=== PATIENT | female | born 2000 | race Hispanic/Latino ===

== ENCOUNTER 2023-04-06 07:35 | Emergency (ER) | payer MEDICAID ==
[~2023-04-06] VITALS: Ht 162.6 cm; Wt 94.3 kg
[2023-04-06 07:59] LABS: APPEARANCE,URINE CLEAR (CLEAR); BILIRUBIN,URINE NEGATIVE (NEGATIVE); COLOR,URINE LIGHT-YELLOW (YELLOW); GLUCOSE, URINE (UA) 50 mg/dL (NEGATIVE); KETONES,URINE NEGATIVE (NEGATIVE); LEUKOCYTE ESTERASE ,URINE NEGATIVE Leu/uL (NEGATIVE); NITRATE,URINE NEGATIVE (NEGATIVE); OCCULT BLOOD,URINE NEGATIVE (NEGATIVE); PROTEIN,URINE 20 mg/dL (NEGATIVE); UROBILINOGEN,URINE 0.2 mg/dL (0.2-1.0)
[2023-04-06 08:00] LABS: BASOPHILS % (AUTO) 0.2 % (0.0-5.0); EOSINOPHILS % (AUTO) 0.6 % (0.0-8.0); HEMATOCRIT 38.6 % (36-48); LYMPHOCYTES % (AUTO) 27.1 % (21.0-51.0); MEAN CORPUSCULAR HEMOGLOBIN 30.4 pg (27.0-33.0); MEAN CORPUSCULAR HGB CONC 34.5 g/dL (32.0-36.0); MEAN CORPUSCULAR VOLUME 88.1 fL (80-100); MONOCYTES % (AUTO) 8.8 % (3.0-13.0); PLATELET COUNT (AUTO) 289 K/uL (130-400); RED BLOOD CELL COUNT(AUTO) 4.38 MIL/uL (4.00-5.50); RED CELL DISTRIBUTION WIDTH 11.9 % (11.0-15.5); WHITE BLOOD COUNT (AUTO) 12.6 K/uL (4.8-10.8)
[2023-04-06 08:11] LABS: CREATININE 0.7 mg/dL (0.5-1.5); POTASSIUM 3.8 mmol/L (3.5-5.1)
[2023-04-06 08:14] LABS: MUCUS,URINE RARE LPF (None Seen); SQUAMOUS EPITHELIAL CELL,UR FEW /HPF (0-2)
[2023-04-06 08:38] LABS: ALBUMIN 3.5 g/dL (3.5-5.0); TOTAL PROTEIN, SERUM 7.4 g/dL (6.0-8.3)
[2023-04-06] MEDS ORDERED: ONDANSETRON 4MG INJ IVP ONE (09:00)
[2023-04-06] MEDS ORDERED: 0.9%NACL 1000ML 1,000 ML IV ONE (09:00)
[2023-04-06] MEDS ORDERED: DOXY1TAB3 PO (10:21)
[2023-04-06 10:43] VITALS: BP 112/56
[2023-04-06 11:37] LABS: RAPID PLASMA REAGIN NONREACTIVE (NONREACTIVE)
== END 2023-04-06 10:56 | disposition home or self-care (01) ==
LOC: EDH 07:35
DX: O26.891 Other specified pregnancy related conditions, first trimester (principal); O21.0 Mild hyperemesis gravidarum; Z3A.10 10 weeks gestation of pregnancy
CPT/HCPCS: 99285; 96374; 76801; 96361; 86592; 80053; 84702; 85025; 86850; 86900; 86901; 87283; 86701; 87390; 81001; 36415; 76817; J7030; J2405

== ENCOUNTER 2023-05-07 02:11 | Emergency (ER) | payer MEDICAID ==
[~2023-05-07] VITALS: Ht 162.6 cm; Wt 93.9 kg
[~2023-05-07 02:11] MED LIST: DOXY1TAB3 PO
[2023-05-07 02:40] VITALS: BP 124/67; PULSE 80; RESP 17; O2SAT 98
[2023-05-07 02:44] LABS: BASOPHILS # (AUTO) 0.03 K/uL (0.00-0.20); BASOPHILS % (AUTO) 0.3 % (0.0-5.0); EOSINOPHILS # (AUTO) 0.15 K/uL (0.00-0.70); EOSINOPHILS % (AUTO) 1.4 % (0.0-8.0); HEMATOCRIT 35.7 % (36-48); IMMATURE GRANULOCYTE ABSOLUTE 0.04 K/uL (0-1); LYMPHOCYTES # (AUTO) 3.5 K/uL (1.0-4.8); MEAN CORPUSCULAR HEMOGLOBIN 30.5 pg (27.0-33.0); MEAN CORPUSCULAR HGB CONC 34.7 g/dL (32.0-36.0); MEAN CORPUSCULAR VOLUME 87.9 fL (80-100); MONOCYTES # (AUTO) 1.1 K/uL (0.1-1.0); MONOCYTES % (AUTO) 10.2 % (3.0-13.0); NEUTROPHILS # (AUTO) 5.8 K/uL (1.8-7.7); NEUTROPHILS % (AUTO) 54.7 % (40.0-77.0); PLATELET COUNT (AUTO) 265 K/uL (130-400); RED BLOOD CELL COUNT(AUTO) 4.06 MIL/uL (4.00-5.50); RED CELL DISTRIBUTION WIDTH 11.5 % (11.0-15.5); WHITE BLOOD COUNT (AUTO) 10.7 K/uL (4.8-10.8)
[2023-05-07 03:05] LABS: CREATININE 0.6 mg/dL (0.5-1.5)
[2023-05-07 03:09] LABS: ALBUMIN 3.1 g/dL (3.5-5.0); BILIRUBIN,TOTAL 0.2 mg/dL (0.2-1.0); TOTAL PROTEIN, SERUM 6.4 g/dL (6.0-8.3)
== END 2023-05-07 03:19 | disposition home or self-care (01) ==
LOC: EDH 02:11
DX: F41.9 Anxiety disorder, unspecified (principal)
CPT/HCPCS: 36415; 80053; 84484; 85025; 93005

== ENCOUNTER 2023-11-05 13:36 | Observation (INO) | payer MEDICAID ==
[~2023-11-05] VITALS: Ht 162.6 cm; Wt 99.8 kg
[2023-11-05 13:55] VITALS: BP 116/72; PULSE 91; RESP 20
[2023-11-05 14:42] LABS: APPEARANCE,URINE CLOUDY (CLEAR); BILIRUBIN,URINE NEGATIVE (NEGATIVE); COLOR,URINE LIGHT-YELLOW (YELLOW); GLUCOSE, URINE (UA) NEGATIVE (NEGATIVE); KETONES,URINE NEGATIVE (NEGATIVE); LEUKOCYTE ESTERASE ,URINE 250 Leu/uL (NEGATIVE); NITRATE,URINE NEGATIVE (NEGATIVE); OCCULT BLOOD,URINE NEGATIVE (NEGATIVE); PROTEIN,URINE 10 mg/dL (NEGATIVE); UROBILINOGEN,URINE 0.2 mg/dL (0.2-1.0)
[2023-11-05 14:43] LABS: ADD UA MICROSCOPIC YES
[2023-11-05 14:49] LABS: BACTERIA,URINE FEW /HPF (None Seen); MUCUS,URINE RARE LPF (None Seen); RBC,URINE 0-1 /HPF (0-1); SQUAMOUS EPITHELIAL CELL,UR MOD /HPF (0-2)
[2023-11-08] MEDS ORDERED: IBUP-2077 PO (09:23)
[2023-11-08] MEDS ORDERED: DOCU-116 PO (09:24)
== END 2023-11-05 15:30 | disposition home or self-care (01) ==
LOC: EDH 13:36 → LDH 14:01
PROVIDERS: ADMIT Obstetrics & Gynecology; ATTEND Obstetrics & Gynecology
DX: O26.893 Other specified pregnancy related conditions, third trimester (principal); R10.9 Unspecified abdominal pain; O99.891 Other specified diseases and conditions complicating pregnancy; M54.50 Low back pain, unspecified; Z3A.36 36 weeks gestation of pregnancy
CPT/HCPCS: 87088; 81001; G0378

== ENCOUNTER 2024-03-18 16:01 | Emergency (ER) | payer MEDICAID ==
[~2024-03-18] VITALS: Ht 162.6 cm; Wt 97.5 kg
[~2024-03-18 16:01] MED LIST changes: +DOCU-116 PO; -DOXY1TAB3 PO; +IBUP-2077 PO
[2024-03-18 17:04] LABS: BASOPHILS # (AUTO) 0.03 K/uL (0.00-0.20); BASOPHILS % (AUTO) 0.2 % (0.0-5.0); EOSINOPHILS # (AUTO) 0.13 K/uL (0.00-0.70); EOSINOPHILS % (AUTO) 1.1 % (0.0-8.0); IMMATURE GRANULOCYTE ABSOLUTE 0.04 K/uL (0-1); LYMPHOCYTES # (AUTO) 2.8 K/uL (1.0-4.8); LYMPHOCYTES % (AUTO) 23.5 % (21.0-51.0); MEAN CORPUSCULAR HEMOGLOBIN 26.9 pg (27.0-33.0); MEAN CORPUSCULAR HGB CONC 32.4 g/dL (32.0-36.0); MONOCYTES % (AUTO) 8.5 % (3.0-13.0); NEUTROPHILS % (AUTO) 66.4 % (40.0-77.0); PLATELET COUNT (AUTO) 358 K/uL (130-400); RED BLOOD CELL COUNT(AUTO) 4.46 MIL/uL (4.00-5.50); RED CELL DISTRIBUTION WIDTH 13.9 % (11.0-15.5); WHITE BLOOD COUNT (AUTO) 12.1 K/uL (4.8-10.8)
[2024-03-18 17:33] LABS: CREATININE 0.6 mg/dL (0.5-1.0); POTASSIUM 3.9 mmol/L (3.5-5.1)
[2024-03-18 17:40] VITALS: BP 122/76; PULSE 92; RESP 16; O2SAT 99
[2024-03-18 18:42] LABS: APPEARANCE,URINE CLEAR (CLEAR); BILIRUBIN,URINE NEGATIVE (NEGATIVE); COLOR,URINE LIGHT-YELLOW (YELLOW); GLUCOSE, URINE (UA) NEGATIVE (NEGATIVE); KETONES,URINE 5 mg/dL (NEGATIVE); LEUKOCYTE ESTERASE ,URINE 25 Leu/uL (NEGATIVE); NITRATE,URINE NEGATIVE (NEGATIVE); OCCULT BLOOD,URINE MODERATE (NEGATIVE); PROTEIN,URINE 30 mg/dL (NEGATIVE); UROBILINOGEN,URINE 0.2 mg/dL (0.2-1.0)
[2024-03-18 18:43] LABS: ADD UA MICROSCOPIC YES
[2024-03-18 18:50] LABS: BACTERIA,URINE RARE /HPF (None Seen); MUCUS,URINE RARE LPF (None Seen); SQUAMOUS EPITHELIAL CELL,UR FEW /HPF (0-2); YEAST,URINE BUDDING RARE /HPF (None Seen)
== END 2024-03-18 20:11 | disposition home or self-care (01) ==
LOC: EDH 16:01
DX: N93.9 Abnormal uterine and vaginal bleeding, unspecified (principal); R10.2 Pelvic and perineal pain; Z32.01 Encounter for pregnancy test, result positive; Z79.899 Other long term (current) drug therapy; Z98.890 Other specified postprocedural states
CPT/HCPCS: 36415; 76801; 80048; 81001; 84702; 85025; 87088

== ENCOUNTER 2025-01-25 21:58 | Emergency (ER) | payer SELFPAY ==
[~2025-01-25] VITALS: Ht 162.6 cm; Wt 103.0 kg
[2025-01-25 23:19] LABS: APPEARANCE,URINE CLEAR (CLEAR); BILIRUBIN,URINE NEGATIVE (NEGATIVE); COLOR,URINE LIGHT-YELLOW (YELLOW); GLUCOSE, URINE (UA) NEGATIVE (NEGATIVE); KETONES,URINE NEGATIVE (NEGATIVE); LEUKOCYTE ESTERASE ,URINE 75 Leu/uL (NEGATIVE); NITRATE,URINE NEGATIVE (NEGATIVE); OCCULT BLOOD,URINE NEGATIVE (NEGATIVE); PH,URINE 5.5 (5.0-8.0); PROTEIN,URINE 10 mg/dL (NEGATIVE); UROBILINOGEN,URINE 0.2 mg/dL (0.2-1.0)
[2025-01-25 23:21] LABS: HCG,QUALITATIVE URINE NEGATIVE (NEGATIVE)
[2025-01-25 23:22] LABS: ADD UA MICROSCOPIC YES
[2025-01-25 23:27] LABS: AMPHET/METH SCREEN,URINE NEGATIVE (NEGATIVE); BARBITURATE SCREEN, URINE NEGATIVE (NEGATIVE); BENZODIAZEPINES SCREEN,URINE NEGATIVE (NEGATIVE); CANNABINOID SCREEN,URINE NEGATIVE (NEGATIVE); COCAINE SCREEN,URINE NEGATIVE (NEGATIVE); OPIATE SCREEN,URINE NEGATIVE (NEGATIVE); PHENCYCLIDINE SCREEN,URINE NEGATIVE (NEGATIVE)
[2025-01-25 23:33] LABS: BACTERIA,URINE FEW /HPF (None Seen); MUCUS,URINE FEW LPF (None Seen); SQUAMOUS EPITHELIAL CELL,UR RARE /HPF (0-2)
--- NOTE | 2025-01-25 23:34 | ERN ---
ED Note History of Present Illness Stated Complaint: C/O LOWER BACK PAIN W/ TINGLING TO LEGS Chief Complaint: Back Pain-No Injury Time Seen by MD: 22:01 Dictation: This is a 24-year-old female who presented to the emergency room complaining of back pain with radiation to the legs. No history of any trauma. No fever chills or rigors. No history of bladder or bowel incontinence. No weakness of the legs. No gait abnormalities she stated that she recently completed course of antibiotics a few weeks ago for a UTI. Apparently she was seen at [facility] Emergency room for the same back pain that started a few weeks ago. She has pain with movement and picking up her son. Temperature 98.2 pulse 94 respirations 20 blood pressure 131/101 pulse oximetry 98% on room air. BMI 39 Allergies: Coded Allergies: No Known Allergies (Unverified Allergy, Unknown, 04/06/23) Home Meds Active Scripts Ketorolac Tromethamine (Toradol) 10 Mg Tab, 10 MG PO QID for pain for 5 Days, #20 TAB 0 Refills Prov:MARYBETH BONNER MD 01/26/25 Cyclobenzaprine HCl (Cyclobenzaprine HCl) 5 Mg Tablet, 1 TAB PO TIDP PRN for muscle spasms for 5 Days, #15 TAB 0 Refills Prov:MARYBETH BONNER MD 01/26/25 Prednisone (Prednisone) 20 Mg Tablet, 1 TAB PO AD for 6 Days, #14 TAB 0 Refills TAKE 1 TAB BY MOUTH THREE TIMES PER DAY X3 DAYS, THEN TAKE 1 TAB BY MOUTH TWICE A DAY X2 DAYS, THEN TAKE 1 TAB BY MOUTH ONCE A DAY X1 DAY. Prov:MARYBETH BONNER MD 01/26/25 Reported Medications Docusate Sodium (Colace) 100 Mg Capsule, 100 MG PO BID, CAP 11/08/23 Ibuprofen (Ibuprofen 800 mg Tab) 800 Mg Tab, 800 MG PO Q8H PRN for PAIN, TAB 11/08/23 Past Medical History Past Medical History: No Pertinent History Surgical History: None Surgical History Other: LEFT EYE Family History: Negative Social History: Negative LMP: Dec 25, 2024 : 2 Para: 1 Aborts: 0 RN Note Reviewed/Agreed w/PFSH: Yes Review of System Dictation Constitutional: Negative for fever,chills, and weight loss Eyes: Negative for injury, pain,redness, and discharge ENT: Negative for injury,pain or swelling Cardiovascular: Negative for chest pain, palpitations, and edema Respiratory: Negative for shortness of breath, cough, and wheezing, Abdomen/GI: Negative for abdominal pain, nausea, vomiting, diarrhea, and constipation Back: Negative for injury and positive for pain : Negative for injury, bleeding and discharge MS/Extremity: Negative for injury and deformity Skin: Negative for rash, and discoloration Neuro: Negative for headache, weakness, numbness, tingling, and seizure Psych: Negative for suicide ideation, homicidal ideation, and hallucinations Initial Vital Sign VS Vital Signs Date Time Temp Pulse Resp B/P (MAP) Pulse Ox O2 Delivery O2 Flow Rate FiO2 01/25/25 22:01 98.2 94 20 131/101 98 Room Air Physical Exam Dictation General: awake, alert, NAD morbidly obese female Head/Face: Normocephalic, atraumatic Eyes: PERRL, EOMI, vision at baseline ENT: oral cavity clear, TMs clear, no signs of infection Neck: Trachea midline, supple, no nuchal rigidity Cardiovascular: RRR, normal S1/S2, No MRGs, no JVD Respiratory: CTAB, no respiratory distress, No rales or wheezes Abdomen: Soft, non-tender, non-distended, normal bowel sounds, no guarding or rebound. Skin: Warm, dry, normal turgor, no rash MS/Extremity: Pulses equal, no cyanosis, neurovascular intact, FROM no spine tenderness Neuro: COAx4, GCS 15, strength 5/5, CN 2-12 intact, normal cerebellar exam, normal gait, Psych: Normal behavior, mood, and affect normal Extremities-trace edema without any palpable cords, Homans sign is negative Results (Laboratory/Radiology) Laboratory/Radiology Laboratory Tests Test 01/25/25 23:07 Urine Color LIGHT-YELLOW (YELLOW) Urine Appearance CLEAR (CLEAR) Urine pH 5.5 (5.0-8.0) Urine Specific [place] 1.028 (1.001-1.031) Urine Protein 10 mg/dL (NEGATIVE) H Urine Glucose (UA) NEGATIVE mg/dL (NEGATIVE) Urine Ketones NEGATIVE mg/dL (NEGATIVE) Urine Occult Blood NEGATIVE (NEGATIVE) Urine Nitrate NEGATIVE (NEGATIVE) Urine Bilirubin NEGATIVE mg/dL (NEGATIVE) Urine Urobilinogen 0.2 mg/dL (0.2-1.0) Urine Leukocyte Esterase 75 [place]/uL (NEGATIVE) H Urine RBC 6-10 /HPF (0-1) H Urine WBC 2-5 /HPF (0-1) H Urine Squamous Epithelial Cells RARE /HPF (0-2) Urine Bacteria FEW /HPF (None Seen) Urine HCG, Qualitative NEGATIVE (NEGATIVE) Urine Opiates Screen NEGATIVE (NEGATIVE) Urine Barbiturates Screen NEGATIVE (NEGATIVE) Urine Phencyclidine Screen NEGATIVE (NEGATIVE) Urine Amphetamines Screen NEGATIVE (NEGATIVE) Urine Benzodiazepines Screen NEGATIVE (NEGATIVE) Urine Cocaine Screen NEGATIVE (NEGATIVE) Urine Marijuana (THC) Screen NEGATIVE (NEGATIVE) Labs Reviewed?: Yes ED Course ED Course Orders Procedure Category Date Status Time Urinalysis Profile LAB 01/25/25 Complete 22:03 ,Urine Test LAB 01/25/25 Complete 22:03 Drug Screen Urine LAB 01/25/25 Complete 22:03 Culture Urine TERRELL 01/25/25 In Process 23:22 Lumbar Spine 2-3vws RAD 01/26/25 Taken 00:01 Ketorolac PHA 01/26/25 Complete Tromethamine 30mg/Ml 00:30 Cyclobenzaprine Hcl PHA 01/26/25 Complete (Cyclobenzaprine Hcl 00:30 Dexamethasone 4mg/Ml PHA 01/26/25 Complete 1ml Vial (Dexametha 00:30 Current Medications Medications (Trade) Dose Ordered Sig/Tim Route PRN Reason Start Time Stop Time Status Last Admin Dose Admin Cyclobenzaprine HCl (Cyclobenzaprine HCl) 10 mg ONCE ONCE PO 01/26/25 00:30 01/26/25 00:31 DC 01/26/25 00:36 Dexamethasone Sodium Phosphate (dexaMETHasone 4MG/ML 1ML VIAL) 6 mg ONCE ONCE IM 01/26/25 00:30 01/26/25 00:31 DC 01/26/25 00:36 Ketorolac Tromethamine (toRADol) 30 mg ONCE ONCE IM 01/26/25 00:30 01/26/25 00:31 DC 01/26/25 00:37 Vital Signs Date Time Temp Pulse Resp B/P (MAP) Pulse Ox O2 Delivery O2 Flow Rate FiO2 01/25/25 22:01 98.2 94 20 131/101 98 Room Air We will perform diagnostic labs, advanced imaging and administer medications according to the patient's complaint. Once the results are available, will review and personally interpreted the labs to rule out any acute life- threatening emergency the trach require immediate intervention and treatment. I will then re-evaluate the patient after treatment and diagnostic exams have return to determine whether the patient requires any further testing, can safely be discharged home or need further admission to hospital for additional treatment and evaluation. Medical Decision Making MDM MDM: Differential diagnosis: Lumbago, radiculopathy, degenerative disc disease, spinal stenosis, sciatica herniated disc Rationale: Tests considered and ordered secondary to shared decision making include: Previous outside records reviewed: Old ER visits. Risk of complication and/or morbidity or mortality of patient management: None Medications-Per medication reconciliation Need for hospitalization: Patient does not meet criteria for hospitalization. Need for emergency major/minor surgery: No There are no social concerns with this patient. Prescription drug management Prescriptions will include symptomatic care Patient's prior external medical records from other ER visits were reviewed by me as indicated. Prior testing and results from previous visits were reviewed. Prior tests were taken into account with medical decision making and resource utilization, independent historian/historians were used to obtain complete medical history. I independently interpreted the test that were performed, results were reviewed by me and considered findings on radiology if ordered. Medical management and examination interpretation discussions were had by me with other qualified healthcare professionals as indicated for the patient's care. Problem List Problem List: (1) Morbid obesity (2) Lumbago (3) Lumbar radiculopathy, acute DX & DISP Disposition: Discharge Departure Impression: Primary Impression: Lumbago Additional Impressions: Morbid obesity, Lumbar radiculopathy, acute Condition: Stable Scripts Ketorolac Tromethamine (Toradol) 10 Mg Tab 10 MG PO QID for pain for 5 Days, #20 TAB 0 Refills Prov: MARYBETH BONNER MD 01/26/25 Cyclobenzaprine HCl (Cyclobenzaprine HCl) 5 Mg Tablet 1 TAB PO TIDP PRN for muscle spasms for 5 Days, #15 TAB 0 Refills Prov: MARYBETH BONNER MD 01/26/25 Prednisone (Prednisone) 20 Mg Tablet 1 TAB PO AD for 6 Days, #14 TAB 0 Refills TAKE 1 TAB BY MOUTH THREE TIMES PER DAY X3 DAYS, THEN TAKE 1 TAB BY MOUTH TWICE A DAY X2 DAYS, THEN TAKE 1 TAB BY MOUTH ONCE A DAY X1 DAY. Prov: MARYBETH BONNER MD 01/26/25 Additional Instructions: Patient and the caregiver have been informed of all the diagnostic tests and the imaging conducted during the today's visit to the emergency room and has verbalized understanding of the results I have personally reviewed and interpreted all diagnostic exams performed here in the ER today as well as the vital signs documented by the nursing staff. The patient is now being disc harged to home and should follow up with the primary care physician or the specialist as directed by the ER staff. Follow-up with primary care provider in 1 to 2 days. Take medications as directed here in the emergency room. Okay to continue home medications unless otherwise discussed during your visit in the emergency room today. Return to your nearest emergency room if symptoms worsen or if there is no improvement. Call 911 if you need immediate assistance. Take Tylenol or Motrin [id number] as needed and if no contraindications are present. Increase oral hydration. A wound culture or urine culture was ordered here in the emergency room department please follow-up with primary care provider and advise them to get repeat ports from our facility. If you had any Dipesh wrap/splints that were applied here, please do not remove them until you see your primary care or specialty. Counseling on weight loss diet and exercise. Once she completes a course of steroids she could do lumbar exercises. Referrals: JESSICA BASSETT PA-C (PCP) MARYBETH BONNER MD Jan 25, 2025 23:33
[2025-01-26] MEDS ORDERED: PRED20TA3 PO (00:33)
[2025-01-26] MEDS ORDERED: CYCL5TAB3 PO (00:33)
[2025-01-26] MEDS ORDERED: KETO10 PO (00:33)
[2025-01-26] MEDS: CYCLOBENZAPRINE HCL 10 MG TABLET PO ONE (00:36)
[2025-01-26] MEDS: dexaMETHasone SOD PHOSPHATE 4 MG/ML 1ML VIAL IM ONE (00:36)
[2025-01-26] MEDS: ketOROlac 30MG VIAL (30MG/ML) IM ONE (00:37)
[2025-01-26 00:58] VITALS: BP 126/69; PULSE 78; RESP 18; TEMP 97.8; O2SAT 98
--- NOTE | 2025-01-26 09:34 | HMCIMG ---
Exam Type: LUMBAR SPINE 2-3VWS Clinical Information: back pain Comparison: None Findings: Exam of the lumbosacral spine demonstrates no evidence of fracture, subluxation, or significant degenerative change. The alignment of the spine is normal. The disc spaces are intact. The facet joints are preserved without significant degenerative changes Bone mineralization is normal. Impression: Normal exam of the lumbosacral spine.
== END 2025-01-26 00:59 | disposition home or self-care (01) ==
LOC: EDH 21:58
DX: M54.16 Radiculopathy, lumbar region (principal); E66.01 Morbid (severe) obesity due to excess calories; Z79.899 Other long term (current) drug therapy
CPT/HCPCS: 99284; 80305; 87086; 81025; 81001; 72100; 96372 ×2; J1100; J1885